=== PATIENT | male | born 1975 | race Caucasian/White ===

== ENCOUNTER 2016-07-28 09:29 | Emergency (ER) | payer OTHER ==
--- NOTE | 2016-07-28 09:43 | Emergency Department Record ---
History of Present Illness - General Chief complaint: Extremity Problem Stated complaint: FISH HOOK IN FINGER Time Seen by Provider: 07/28/16 09:34 Source: Patient Mode of Arrival: Ambulatory Limitations: No limitations - History of Present Illness Initial comments: The patient is here due to getting a fish hook stuck in the distal L 3rd finger an hour ago. He states he has been unable to get it out. His Td is not UTD. MD Complaint: Extremity pain Onset/Timin -: Hour(s) Location: Left, Hand History of Same: No Radiation: None Severity scale (1-10): 9 Quality: Sharp, Stabbing Improves with: Nothing Worsens with: Palpation Associated Symptoms: Denies other symptoms - Related Data Previous Rx's Medication Instructions Recorded Cephalexin [Keflex] 500 mg PO QID #20 cap 07/28/16 Allergies Allergy/AdvReac Type Severity Reaction Status Date / Time No Known Drug Allergies Allergy Verified 07/28/16 09:32 Travel Screening - Travel/Exposure Within Last 30 Days Have you traveled within the last 30 days?: No - Travel/Exposure Within Last Year Have you traveled outside the [place] in the last year?: No - Additonal Travel Details Have you been exposed to anyone with a communicable illness?: No - Travel Symptoms Symptom Screening: None Past Medical History - SOCIAL HISTORY Smoking Status: Current every day smoker Alcohol Use: None Drug Use: None - RESPIRATORY Hx Respiratory Disorders: No - CARDIOVASCULAR Hx Cardio Disorders: No - NEURO Hx Neuro Disorders: No - GI Hx GI Disorders: No - Hx Genitourinary Disorders: No - ENDOCRINE Hx Endocrine Disorders: No - MUSCULOSKELETAL Hx Musculoskeletal Disorders: No - PSYCH Hx Psych Problems: No - HEMATOLOGY/ONCOLOGY Hx Hematology/Oncology Disorders: No Family Medical History Any Significant Family History?: No Physical Exam - General General Appearance: Alert, Oriented x3, Cooperative, No acute distress - Head Head exam: Atraumatic, Normocephalic - Eye Eye exam: Normal appearance, PERRL - Extremities Extremities exam: negative: Normal inspection (There is a single hook of a treble hook lure stuck in the finger.) Course Vital Signs 07/28/16 09:33 Temperature 98 F Pulse Rate 74 Respiratory 16 Rate Blood Pressure 127/88 Pulse Ox 98 - Reevaluation(s) Reevaluation #1: Procedure note: The L 3rd finger was anesth. using a digital block techinique with 3 cc's lido 1%. The hook area was cleansed with alcohol and the hook was removed with traction. There were no complications. The PW area was then cleansed with alcohol and betadine and dressed with Abx ointment and a bandaid. 07/28/16 10:52 Disposition Disposition: Discharge Clinical Impression: Fish hook injury of finger Qualifiers: Encounter type: initial encounter Laterality: left Qualified Code(s): S69.92XA - Unspecified injury of left wrist, hand and finger(s), initial encounter Disposition: Home, Self-Care Condition: (1) Good Instructions: Puncture Wound (ED) Additional Instructions: Take the Keflex as directed. Keep dry for 24 hours. Watch for signs of infection. Return to the ER for any problems. Prescriptions: Cephalexin [Keflex] 500 mg PO QID #20 cap Forms: Patient Portal Access Time of Disposition: 09:48
[2016-07-28] MEDS: Diph,Pert(Acell),Tet Vac 0.5 ML SYR IM ONE (09:59)
== END 2016-07-28 10:09 | disposition home or self-care (01) ==
LOC: ER 09:29
DX: S60.453A Superficial foreign body of left middle finger, initial encounter (principal); W45.8XXA Other foreign body or object entering through skin, initial encounter
CPT/HCPCS: 90715; 96372; 99283